=== PATIENT | female | born 1985 | race Caucasian/White ===

== ENCOUNTER 2021-05-30 18:07 | Emergency (ER) | payer SELFPAY ==
[2021-05-30 18:28] VITALS: BP 117/58; PULSE 113; RESP 24; TEMP 37.5; O2SAT 100; BMI 27.4
--- NOTE | 2021-05-30 18:56 | DI.US.S_ITS ---
PROCEDURE: US OB LIMITED INDICATIONS: DATES; NO PRE- CARE OUTSIDE/PRIOR DATING DATA: Last menstrual period (LMP): 02/08/2021. LMP-based estimated date of delivery (ALEXIS): 11/15/2021. First dating scan (date and location): 05/30/2021. Estimated date of delivery (ALEXIS) from first dating scan: 11/09/2021. TECHNIQUE: Real-time scanning was performed of the fetus, with image documentation. Endovaginal scanning: No COMPARISON: None. FINDINGS: A single living intrauterine gestation is present. Presentation: Transverse with head to maternal right. Placenta: Placental position is left posterior, without previa. heart rate: 153 beats per minute. Maternal cervical canal: 3 point cm long. Normal lower limit is 2.5 cm. biometrics: BPD: 36 mm; 17 weeks 0 days Head circumference: 130 mm; 16 weeks 5 days 16 weeks 0 day Abdominal circumference: 111 mm; 17 weeks 0 days Femur length: 20 mm; 16 weeks 0 days Estimated gestational age from initial scan: 16 weeks 5 days Estimated weight: 161 g, which is at the 86th percentile for gestational age. Maternal ovaries not seen.. IMPRESSION: 1. Single living intrauterine gestation. Dictated by: Ed Hernández M.D. on 05/30/2021 at 19:55 Approved by: Ed Hernández M.D. on 05/30/2021 at 19:57
[2021-05-30 19:06] LABS: Ictotest Urine Negative (Negative)
[2021-05-30 19:08] LABS: Bacteria Urine Many (>30); Culture Indicated Urine Specimen Cultured; RBC Urine 1-5/HPF (0-5/HPF); Squamous Epithelial Cell Urine 1-5 /HPF (0-5/HPF); Transitional Epi Cells Urine 1-5/HPF (0-5/HPF); WBC Urine >100/HPF (0-5/HPF)
--- NOTE | 2021-05-30 19:34 | PC.NURSE ---
US at bedside
--- NOTE | 2021-05-30 19:45 | PC.NURSE ---
pt c/o itching all over, thinks she is 4-5 months but has not had any care, pt c/o spotting no large clots noted, no cramping
[2021-05-30 19:50] LABS: Add Manual Diff / Slide Review NO; Basophils Absolute Auto 100 /uL (0-100); Basophils Percent Auto 0.6 % (0-2); Eosinophils Absolute Auto 300 /uL (0-450); Eosinophils Percent Auto 2.3 % (2-4); Hematocrit 26.9 % (36-46); Hemoglobin 8.2 g/dL (12.0-16.0); Lymphocytes Absolute Auto 1400 /uL (1100-4500); Lymphocytes Percent Auto 12.2 % (25-40); Mean Corpuscular HGB Conc 30.5 % (30-36); Mean Corpuscular Hemoglobin 19.5 PG (26-34); Mean Corpuscular Volume 63.8 fL (80-100); Monocytes Absolute Auto 1000 /uL (0-900); Monocytes Percent Auto 8.4 % (3-14); Neutrophils Absolute Auto 9100 /uL (1500-7000); Neutrophils Percent Auto 76.5 % (50-75); Platelet Count 275 X10^3/uL (150-400); Red Blood Cell Count 4.22 X10^6/uL (4.0-5.2); Red Cell Distribution Width 17.9 % (11.6-14.8); White Blood Cell Count 11.8 X10^3/uL (4.5-11.0)
[2021-05-30 20:08] LABS: Alanine Aminotransferase 21 IU/L (<35); Albumin 3.2 g/dL (3.5-5.0); Alkaline Phosphatase 60 U/L (38-126); Aspartate Aminotransferase 26 IU/L (14-36); BUN Creatinine Ratio 21.1 (6-22); Bilirubin Total 0.3 mg/dL (0.2-1.3); Blood Urea Nitrogen 12 mg/dL (7-17); Calcium 8.7 mg/dL (8.4-10.2); Carbon Dioxide 24 mmol/L (22-32); Chloride 108 mmol/L (98-107); Estimated Glomerular Filt Rate > 60.0 mL/min (>60); Globulin 3.2 g/dL (1.7-4.1); Glucose 101 mg/dL (70-100); HEMOLYSIS < 15 (0-50); Potassium 3.8 mmol/L (3.4-5.1); Sodium 134 mmol/L (137-145); Total Protein 6.4 g/dL (6.3-8.2)
[2021-05-30 20:17] LABS: Anisocytosis 1+; Microcytosis 1+; Ovalocytes 1+; Poikilocytosis 1+
--- NOTE | 2021-05-30 20:27 | ED_ITS ---
HPI - General Adult General Chief complaint: OB/Uterine Contractions Stated complaint: Itchiness, 5-6 months preg, spotting Time Seen by Provider: 05/30/21 20:02 Source: patient Mode of arrival: Ambulatory History of Present Illness HPI narrative: Patient is a 35-year-old female. Here for evaluation of 2 separate issues. Patient is . She has had no care up to this point. She believes she is somewhere between 5 and 6 months . She is having some spotting. No urinary symptoms. No abdominal pain. No fevers. No nausea vomiting. She is homeless. She is here with her boyfriend who is the father of the baby. She states she has not established care because of issues with insurance and her ex-. She is also here because she is having itching. She has had itching all over her body but currently it is on her head. She has shaved her head because of the itching. She tried Benadryl 1 time in the past but was concerned because of her continuing this medication. It appears she has had issues like this in the past. Has been given Ativan in the past which she states helps the itching. No fevers. Related Data Previous Rx's Medication Instructions Recorded mupirocin 2 % topical ointment 1 applic TOPICAL BID #22 g 05/30/21 Review of Systems Constitutional Constitutional: Denies fever(s) and Denies headache(s) ENT Ears, Nose, Mouth, and Throat: Denies headache(s) Cardiovascular Cardiovascular: Reports system reviewed and no additional complaints, except as documented Respiratory Respiratory: Reports system reviewed and no additional complaints, except as documented Gastrointestinal Gastrointestinal: Reports as per HPI and Reports system reviewed and no additional complaints, except as documented Genitourinary Genitourinary: Reports system reviewed and no additional complaints, except as documented, Reports as per HPI and Denies dysuria Musculoskeletal Musculoskeletal: Reports system reviewed and no additional complaints, except as documented Integumentary/Breasts Skin/Breast: Reports pruritus Neurologic Neurologic: Reports system reviewed and no additional complaints, except as documented and Denies headache(s) Hematologic/Lymphatic On Anticoagulants: No Allergic/Immunologic Allergic/Immunologic: Reports system reviewed and no additional complaints, except as documented Patient History Medical History Patient denies medical problems Social History Smoking Status: Never smoker Smoking Status: Never smoker Substance Use Type: does not use Exam Initial Vital Signs Initial Vital Signs: Vital Signs Temperature 99.5 F 05/30/21 18:28 Pulse Rate 113 H 05/30/21 18:28 Respiratory Rate 24 05/30/21 18:28 Blood Pressure 117/58 L 05/30/21 18:28 Pulse Oximetry 100 05/30/21 18:28 Const General: comfortable Limitations: mental status not altered HENMT Head: No contusion, No laceration and scalp lesion Ears: hearing grossly normal bilaterally Nose: external nose normal Mouth: oral mucosae normal Throat: posterior oropharynx normal Eyes General: appearance normal, both eyes and all related structures Resp Effort & Inspection: normal respiratory effort Auscultation: clear to auscultation bilaterally Cardio Rate: regular rate Rhythm: regular rhythm GI Inspection: non-distended Palpation: soft and No tender Back/Spine/Pelvis Back: normal to inspection Skin Other: Patient has multiple pinpoint and very small excoriations and crusting specifically to her scalp. There is no surrounding erythema. There are no pustules. There are no signs of abscesses. There are no vesicles. It does give the appearance of someone who is been scratching their head and the small wounds that can be caused because of his. There is not appear to be any other rashes or findings throughout her body. Neuro General: patient alert, patient awake and patient oriented x3 Extrem General: normal to inspection and capillary refill normal Psych Appearance: disheveled Course Orders Ordered: ED Orders 05/30/21 19:45 ABO RH Type Stat Complete Blood Count AUTO DIFF Stat Comprehensive Metabolic Panel Stat HCG Quantitative /Beta subunit Stat Discontinued Medications Azithromycin (Azithromycin 250 Mg Tablet) 1,000 mg PO NOW ONE Stop: 05/30/21 20:29 Last Admin: 05/30/21 20:41 Dose: 1,000 mg Documented by: JOSE ALBERTO Ceftriaxone Sodium (Ceftriaxone 1,000 Mg Vial) 500 mg IM NOW ONE Stop: 05/30/21 20:29 Last Admin: 05/30/21 20:41 Dose: 500 mg Documented by: JOSE ALBERTO Lidocaine HCl (Lidocaine 1% (Pf) 5 Ml) 2.1 ml INJ NOW ONE Stop: 05/30/21 20:29 Last Admin: 05/30/21 20:51 Dose: 2.1 ml Documented by: JOSE ALBERTO Vital Signs Vital signs: Vital Signs - 8 hr 05/30/21 21:10 Pulse Rate 96 H Respiratory Rate 20 Blood Pressure 116/60 Pulse Oximetry 100 Medical Decision Making Lab Data Lab results reviewed: Yes I reviewed the patient's lab results. Result diagrams: 05/30/21 19:45 05/30/21 19:45 Labs: Lab Results 05/30/21 05/30/21 05/30/21 Range/Units 18:30 18:30 19:45 WBC 11.8 H (4.5-11.0) X10^3/uL RBC 4.22 (4.0-5.2) X10^6/uL Hgb 8.2 L (12.0-16.0) g/dL Hct 26.9 L (36-46) % MCV 63.8 L (80-100) fL MCH 19.5 L (26-34) PG MCHC 30.5 (30-36) % RDW 17.9 H (11.6-14.8) % Plt Count 275 (150-400) X10^3/uL Neut % (Auto) 76.5 H (50-75) % Lymph % (Auto) 12.2 L (25-40) % [place] % (Auto) 8.4 (3-14) % Eos % (Auto) 2.3 (2-4) % Baso % (Auto) 0.6 (0-2) % Neut # (Auto) 9100 H (0790-3118) /uL Lymph # (Auto) 1400 (0666-9961) /uL [place] # (Auto) 1000 H (0-900) /uL Eos # (Auto) 300 (0-450) /uL Baso # (Auto) 100 (0-100) /uL RBC Morphology See below Poikilocytosis 1+ H Anisocytosis 1+ H Microcytosis 1+ H Ovalocytes 1+ H Sodium (137-145) mmol/L Potassium (3.4-5.1) mmol/L Chloride (98-107) mmol/L Carbon Dioxide (22-32) mmol/L BUN (7-17) mg/dL Creatinine (0.52-1.04) mg/dL Estimated GFR (>60) mL/min BUN/Creatinine Ratio (6-22) Glucose (70-100) mg/dL Calcium (8.4-10.2) mg/dL Total Bilirubin (0.2-1.3) mg/dL AST (14-36) IU/L ALT (<35) IU/L Alkaline Phosphatase (38-126) U/L Total Protein (6.3-8.2) g/dL Albumin (3.5-5.0) g/dL Globulin (1.7-4.1) g/dL Albumin/Globulin Ratio (1.0-2.8) HCG, Quant mIU/mL Ur Bilirubin Confirm Negative (Negative) Urine RBC 1-5/hpf (0-5/HPF) Urine WBC >100/hpf H (0-5/HPF) Ur Squamous Epith Cells 1-5 /hpf (0-5/HPF) Ur Transition Epith Cell 1-5/hpf (0-5/HPF) Urine Bacteria Many (>30) H (None) Ur Culture Indicated? Specimen cultured Blood Type 05/30/21 05/30/21 Range/Units 19:45 19:45 WBC (4.5-11.0) X10^3/uL RBC (4.0-5.2) X10^6/uL Hgb (12.0-16.0) g/dL Hct (36-46) % MCV (80-100) fL MCH (26-34) PG MCHC (30-36) % RDW (11.6-14.8) % Plt Count (150-400) X10^3/uL Neut % (Auto) (50-75) % Lymph % (Auto) (25-40) % [place] % (Auto) (3-14) % Eos % (Auto) (2-4) % Baso % (Auto) (0-2) % Neut # (Auto) (0131-7067) /uL Lymph # (Auto) (1381-0739) /uL [place] # (Auto) (0-900) /uL Eos # (Auto) (0-450) /uL Baso # (Auto) (0-100) /uL RBC Morphology Poikilocytosis Anisocytosis Microcytosis Ovalocytes Sodium 134 L (137-145) mmol/L Potassium 3.8 (3.4-5.1) mmol/L Chloride 108 H (98-107) mmol/L Carbon Dioxide 24 (22-32) mmol/L BUN 12 (7-17) mg/dL Creatinine 0.57 (0.52-1.04) mg/dL Estimated GFR > 60.0 (>60) mL/min BUN/Creatinine Ratio 21.1 (6-22) Glucose 101 H (70-100) mg/dL Calcium 8.7 (8.4-10.2) mg/dL Total Bilirubin 0.3 (0.2-1.3) mg/dL AST 26 (14-36) IU/L ALT 21 (<35) IU/L Alkaline Phosphatase 60 (38-126) U/L Total Protein 6.4 (6.3-8.2) g/dL Albumin 3.2 L (3.5-5.0) g/dL Globulin 3.2 (1.7-4.1) g/dL Albumin/Globulin Ratio 1.0 (1.0-2.8) HCG, Quant 77929 mIU/mL Ur Bilirubin Confirm (Negative) Urine RBC (0-5/HPF) Urine WBC (0-5/HPF) Ur Squamous Epith Cells (0-5/HPF) Ur Transition Epith Cell (0-5/HPF) Urine Bacteria (None) Ur Culture Indicated? Blood Type A Positive Urine Dip Bedside Urine Glucose Negative Bedside Urine Bilirubin - Negative Bedside Urine Ketone - Negative Urine Specific [place] 1.030 Bedside Urine Occult Blood - Negative Bedside Urine pH 6.0 Bedside Urine Protein + 30 Bedside Urine Urobilinogen 0.2 Bedside Urine Nitrite - Negative Bedside Urine Leukocytes ++ 125 Esterase Point of care testing: Urine Dip Bedside Urine Glucose Negative Bedside Urine Bilirubin - Negative Bedside Urine Ketone - Negative Urine Specific [place] 1.030 Bedside Urine Occult Blood - Negative Bedside Urine pH 6.0 Bedside Urine Protein + 30 Bedside Urine Urobilinogen 0.2 Bedside Urine Nitrite - Negative Bedside Urine Leukocytes ++ 125 Esterase Imaging Data US - OB: Radiologist's Impression: [address] [address] Ultrasound Report Signed Patient: Lore Fontanez MR#: [id number] : 1985 Acct:[id number] Age/Sex: 35 / F Date of Service: 05/30/21 Loc: ED Accession Number: [id number] ?? Procedure: US OB limited Ordering Provider: Arden Melvin D.O. PROCEDURE:? US OB LIMITED ? INDICATIONS:? DATES; NO PRE- CARE ? OUTSIDE/PRIOR DATING DATA:? Last menstrual period (LMP):? 02/08/2021.? LMP-based estimated date of delivery (ALEXIS):? 11/15/2021.? First dating scan (date and location):? 05/30/2021.? Estimated date of delivery (ALEXIS) from first dating scan:? 11/09/2021. ? TECHNIQUE: Real-time scanning was performed of the fetus, with image documentation.? Endovaginal scanning:? No ? COMPARISON:? None. ? FINDINGS:? A single living intrauterine gestation is present.? Presentation:? Transverse with head to maternal right.? Placenta:? Placental position is left posterior, without previa.? ? heart rate:? 153 beats per minute.? Maternal cervical canal:? 3 point cm long.? Normal lower limit is 2.5 cm.? ? biometrics: ? BPD:? 36 mm; 17 weeks 0 days Head circumference:? 130 mm; 16 weeks 5 days 16 weeks 0 day Abdominal circumference:? 111 mm; 17 weeks 0 days Femur length:? 20 mm;? 16 weeks 0 days ? Estimated gestational age from initial scan:? 16 weeks 5 days Estimated weight:? 161 g, which is at the 86th percentile for gestational age. ? Maternal ovaries not seen.. ? ? IMPRESSION:? 1. Single living intrauterine gestation. ? ? Dictated by: Ed Hernández M.D. on 05/30/2021 at 19:55 ? ? Approved by: Ed Hernández M.D. on 05/30/2021 at 19:57?? MDM Narrative Medical decision making narrative: Patient is did show able to and she is living out of her car. The ultrasound shows a single live intrauterine at approximately 16 weeks. I did inform her of this. She has no urinary symptoms. Rest of her labs are unremarkable. Patient is here in the emergency department with her boyfriend. I evaluated her boyfriend in the emergency department within the past 24 hours and her boyfriend was diagnosed with gonorrhea. Because of this I will treat Lore today for both gonorrhea and chlamydia given her close contact. I did discuss this with her and she expressed understanding. She was given Rocephin and azithromycin here in the ER. Unsure the exact etiology of the itching that she is having on her scalp. There does not appear to be abscesses. No signs of cellulitis. No signs of scabies. There are no signs of parasites or fungal infection which the patient was concerned about. I tried to reassure the patient of these findings. It does appear to be distressing to her and I spencer og that the small wounds that are seen are head her most likely from her scratching the area. We did discuss that she could take Claritin and Benadryl if needed for the itching. I will also prescribe her mupirocin topical treatment. She was informed the importance of establishing OB care and was given phone numbers to aid with this. No further workup required in the emergency department. Patient was given return precautions. Discharge Plan Departure Patient Disposition: Home Clinical Impression: , Itching Instructions: Support (Alternative Therapy) Activity Restrictions/Additional Instructions: I do recommend that you contact the call center here at the [facility] at [phone]. This number can help you establish a primary doctor. You can also contact the [facility] at [phone]. This group does have OB providers. It is important that you get regular care. Take the antibiotic ointment as directed. Return to the emergency department for any new or worsening symptoms. Prescriptions: New mupirocin 2 % ointment 1 applic topical BID Qty: 22 0RF Stand Alone Forms: Work Release Note
[2021-05-30] MEDS: cefTRIAXone 1,000 MG VIAL 500 MG IM (20:41)
[2021-05-30] MEDS: AZITHROMYCIN 250 MG TABLET 1000 MG PO (20:41)
[2021-05-30 20:49] LABS: HCG Quantitative /Beta subunit 47656 mIU/mL
[2021-05-30] MEDS: LIDOCAINE 1% (PF) 5 ML 2.1 ML INJ (20:51)
[2021-05-30 21:10] VITALS: BP 116/60; PULSE 96; RESP 20; O2SAT 100
== END 2021-05-30 21:11 | disposition home or self-care (01) ==
PROVIDERS: Emergency Provider Emergency Medicine
DX: O26.852 Spotting complicating pregnancy, second trimester (principal); O26.892 Other specified pregnancy related conditions, second trimester; L29.9 Pruritus, unspecified; Z3A.16 16 weeks gestation of pregnancy; Z59.02 Unsheltered homelessness
CPT/HCPCS: 36415; 76815; 80053; 81003; 81015; 84702; 85025; 86900; 86901; 87086; 96372; 99284; J0696